=== PATIENT | female | born 1980 | race Caucasian/White ===

== ENCOUNTER 2018-03-16 21:12 | Emergency (ER) | payer SELFPAY ==
[2018-03-16 22:29] VITALS: TEMP 98.1
[2018-03-16] MEDS ORDERED: Lactated Ringer's 1,000 ML IV STA (23:27)
--- NOTE | 2018-03-17 00:31 | ED PDOC ---
HPI:Nausea, Vomiting, Diarrhea Time Seen by Provider: 03/16/18 23:08 Chief Complaint (Nursing): Weakness/Neurological Deficit Chief Complaint (Provider): Weakness/Neurological Deficit History Per: Patient History/Exam Limitations: no limitations Onset/Duration Of Symptoms: Days (x2) Associated Symptoms: Nausea, Vomiting (non bloody, non bilious), Diarrhea Additional Complaint(s): 37 years old female presents to ER for evaluation of nausea, light headedness, headache, generalized weakness, vomiting and diarrhea for the last 2 days. Patient reports 2-3 episodes of non bloody, non bilious vomiting and 2-3 episodes of non bloody, watery diarrhea. She reports associated decrease of appetite. Patient denies abdominal pain, fever, sick contact, recent travel or taking any medication for symptoms. PMD: Clinic Past Medical History Reviewed: Historical Data, Nursing Documentation, Vital Signs Vital Signs: Last Vital Signs Temp 98.1 F 03/16/18 22:25 Pulse 67 03/16/18 22:25 Resp 18 03/16/18 22:25 BP 120/78 03/16/18 22:25 Pulse Ox 100 03/16/18 22:25 - Medical History PMH: No Chronic Diseases - Surgical History Surgical History: No Surg Hx - Family History Family History: States: Diabetes - Social History Current smoker - smoking cessation education provided: No Alcohol: None Drugs: Denies - Home Medications Home Medications: Ambulatory Orders Medication Instructions Recorded Cyclobenzaprine [Cyclobenzaprine 10 mg PO Q8 #15 tab 02/06/16 HCl] Naproxen [Naprosyn] 500 mg PO BID #20 tablet 02/06/16 Nitrofurantoin Macrocrystals 100 mg PO BID #10 cap 02/06/16 [Macrobid] Acetaminophen [Acetaminophen Extra 2 tab PO Q6 PRN #24 tablet 06/19/16 Strength] RX: Mag&Al/Simet/Diphen/Lido 5 ml MM TID PRN #1 kit 06/19/16 [First Magic Mouthwash] Ondansetron ODT [Zofran ODT] 4 mg PO Q8 PRN #12 odt 03/17/18 - Allergies Allergies/Adverse Reactions: Allergies Allergy/AdvReac Type Severity Reaction Status Date / Time No Known Allergies Allergy Verified 03/16/18 22:25 Review of Systems ROS Statement: Except As Marked, All Systems Reviewed And Found Negative Constitutional: Negative for: Fever Cardiovascular: Positive for: Light Headedness Gastrointestinal: Positive for: Nausea, Vomiting (non bloody, non bilious), Diarrhea (non bloody, watery). Negative for: Abdominal Pain Neurological: Positive for: Weakness (generalized), Headache Physical Exam - Reviewed Nursing Documentation Reviewed: Yes Vital Signs Reviewed: Yes - Physical Exam Appears: Positive for: Non-toxic, No Acute Distress (but tired appearing) Head Exam: Positive for: ATRAUMATIC, NORMOCEPHALIC Skin: Positive for: Warm, Dry, Pallor Eye Exam: Positive for: EOMI, PERRL ENT: Positive for: Pharynx Is (clear), Other (tacky mucous membranes) Neck: Positive for: Painless ROM, Supple Cardiovascular/Chest: Positive for: Regular Rate, Rhythm. Negative for: Murmur Respiratory: Positive for: Normal Breath Sounds. Negative for: Respiratory Distress Gastrointestinal/Abdominal: Positive for: Soft, Tenderness. Negative for: Mass, Distended, Guarding Back: Positive for: Normal Inspection. Negative for: Decreased ROM Extremity: Positive for: Normal ROM. Negative for: Deformity Neurologic/Psych: Positive for: Alert, Oriented (x3). Negative for: Motor/Sensory Deficits - Laboratory Results Result Diagrams: 03/17/18 00:15 03/17/18 00:15 - ECG O2 Sat by Pulse Oximetry: 100 (RA) Pulse Ox Interpretation: Normal Medical Decision Making Medical Decision Making: Time: 2325 Initial Impression: Weakness, vomiting and diarrhea. Differential includes but not limited to gastroenteritis, viral syndrome, electrolyte abnormality and dehydration. Initial Plan: --CMP --TSH --Magnesium --Phosphorous --Urine dipstick --Urine --CBC --Lactated Ringers 1,000 ml IV --Tylenol 325 mg PO --Zofran 4 mg IVP [address] Choi, pending labs, fluids and reassessment. --- -- Scribe Attestation: Documented by Risa Hsu, acting as a scribe for Carey Jo MD. Provider Scribe Attestation: All medical record entries made by the Scribe were at my direction and personally dictated by me. I have reviewed the chart and agree that the record accurately reflects my personal performance of the history, physical exam, medical decision making, and the department course for this patient. I have also personally directed, reviewed, and agree with the discharge instructions and disposition. Disposition - Clinical Impression Clinical Impression: Gastroenteritis - Disposition Disposition: Transfer of Care Disposition Time: 00:00 Condition: STABLE Prescriptions: Ondansetron ODT [Zofran ODT] 4 mg PO Q8 PRN #12 odt PRN Reason: Nausea/Vomiting
[2018-03-17 00:43] LABS: BASO # 0.1 K/uL (0.0-0.2); BASO % 1.2 % (0.0-2.0); EOS # 0.1 K/uL (0.0-0.7); EOS % 1.3 % (0.0-4.0); HEMOGLOBIN 13.7 g/dL (12.0-16.0); LYMPH # 2.7 K/uL (1.0-4.3); LYMPH % 31.6 % (20.0-40.0); MEAN CELL VOLUME 88.2 fl (81.0-99.0); MEAN CORPUSCULAR HEMOGLOBIN 29.9 pg (27.0-31.0); MEAN CORPUSCULAR HGB CONC 33.9 g/dL (33.0-37.0); MEAN PLATELET VOLUME 9.6 fl (7.2-11.7); MONO # 0.4 K/uL (0.0-0.8); MONO % 4.8 % (0.0-10.0); NEUT # 5.2 K/uL (1.8-7.0); NEUT % 61.1 % (50.0-75.0); NRBC % 0.1 % (0.0-0.0); RBC 4.57 Mil/uL (3.80-5.20); RED CELL DISTRIBUTION WIDTH 14.1 % (11.5-14.5); WHITE BLOOD COUNT 8.5 K/uL (4.8-10.8)
--- NOTE | 2018-03-17 00:44 | ED PDOC ---
- Laboratory Results Result Diagrams: 03/17/18 00:15 03/17/18 00:15 - ECG O2 Sat by Pulse Oximetry: 100 (RA) Pulse Ox Interpretation: Normal Medical Decision Making Medical Decision Makin Received endorsement from Dr. Jo, pending labs, fluids and reassessment. 0145 Patient is feeling better, tolerating PO Vitals improved Advised patient to take plenty of fluids, rest and see PMD Very well appearing upon discharge ------- Scribe Attestation: Documented by Risa Hsu, acting as a scribe for Benjamin Choi MD. Provider Scribe Attestation: All medical record entries made by the Scribe were at my direction and personally dictated by me. I have reviewed the chart and agree that the record accurately reflects my personal performance of the history, physical exam, medical decision making, and the department course for this patient. I have also personally directed, reviewed, and agree with the discharge instructions and disposition. Disposition - Clinical Impression Clinical Impression: Gastroenteritis - POA Present On Arrival: None - Disposition Referrals: Cara Chauhan [Family Provider] - Disposition: Routine/Home Disposition Time: 01:50 Condition: IMPROVED Prescriptions: Ondansetron ODT [Zofran ODT] 4 mg PO Q8 PRN #12 odt PRN Reason: Nausea/Vomiting Instructions: Gastroenteritis (ED) Forms: [employer] ([place])
[2018-03-17 00:48] LABS: ALB/GLOB RATIO 1.1 (1.0-2.1); ALBUMIN 4.1 g/dL (3.5-5.0); BLOOD UREA NITROGEN 14 mg/dl (7-17); CALCIUM 9.6 mg/dL (8.4-10.2); GFR NON-AFRICAN AMERICAN > 60
[2018-03-17 00:58] LABS: ALT/SGPT 20 U/L (9-52); AST/SGOT 26 U/L (14-36)
[2018-03-17 01:52] VITALS: BP 105/76; PULSE 74; RESP 17
[2018-03-17 01:56] LABS: SQUAMOUS EPITHIAL 24 /hpf (0-5); URINE BILIRUBIN NEGATIVE (NEGATIVE); URINE BLOOD NEGATIVE (NEGATIVE); URINE CLARITY TURBID (Clear); URINE COLOR YELLOW (YELLOW); URINE GLUCOSE (UA) NEG (Normal); URINE LEUKOCYTE ESTERASE SMALL Leu/uL (Negative); URINE PROTEIN 30 mg/dL (NEGATIVE); URINE UROBILINOGEN 0.2-1.0 mg/dL (0.2-1.0)
[2018-03-19 17:34] VITALS: O2SAT 100
== END 2018-03-17 01:52 | disposition home or self-care (01) ==
LOC: H.ER 21:12
DX: K52.9 Noninfective gastroenteritis and colitis, unspecified (principal)
CPT/HCPCS: 80053; 81003; 81025; 83735; 84100; 84443; 85025; 96361; 96374; 99284; J2405; J7120